=== PATIENT | male | born 1965 | race Caucasian/White ===

== ENCOUNTER 2017-11-26 11:30 | Emergency (ER) | payer OTHER ==
[2017-11-26 11:42] VITALS: BP 154/80; PULSE 91; RESP 18; TEMP 97.9; O2SAT 99
--- NOTE | 2017-11-26 12:37 | C.PDOC ---
History Of Present Illness 52 year old male presents to the ED for evaluation of lower back pain. Patient had an accident at work on 10/25 and sustained an injury to his lower back. He was evaluated and cleared by his PMD to return to work this week. Patient states he lifted a heavy box (approximately 80lbs) at work 4 days ago and has had pain to his lower back since then. He also notes the pain radiates down his left leg. Patient has been taking 800mg Ibuprofen with minimal relief. He denies urinary/bowel incontinence, saddles anesthesia, extremity numbness/ weakness, and any other injures/trauma to the affected areas. Time Seen by Provider: 11/26/17 11:59 Chief Complaint (Nursing): Back Pain History Per: Patient History/Exam Limitations: no limitations Onset/Duration Of Symptoms: Days (4) Current Symptoms Are (Timing): Still Present Quality Of Discomfort: "Pain" Previous Symptoms: Back Pain, Prior Injury Associated Symptoms: denies: Incontinence, New Weakness, New Numbness Additional History Per: Patient Past Medical History Reviewed: Historical Data, Nursing Documentation, Vital Signs Vital Signs: Last Vital Signs Temp 97.9 F 11/26/17 11:40 Pulse 91 H 11/26/17 11:40 Resp 18 11/26/17 11:40 BP 154/80 H 11/26/17 11:40 Pulse Ox 99 11/26/17 13:56 - Medical History PMH: No Chronic Diseases Surgical History: No Surg Hx Family History: States: Unknown Family Hx - Social History Hx Tobacco Use: No Hx Alcohol Use: No Hx Substance Use: No - Immunization History Hx Tetanus Toxoid Vaccination: No Hx Influenza Vaccination: No Hx Pneumococcal Vaccination: No Review Of Systems Genitourinary: Negative for: Incontinence Musculoskeletal: Positive for: Back Pain, Leg Pain (left) Neurological: Negative for: Weakness, Numbness Physical Exam - Physical Exam Appears: Non-toxic, No Acute Distress Skin: Normal Color, Warm, Dry, No Ecchymosis Head: Atraumatic, Normacephalic Eye(s): bilateral: Normal Inspection Neck: Normal ROM Chest: Symmetrical Cardiovascular: Rhythm Regular Respiratory: Normal Breath Sounds, No Accessory Muscle Use, No Wheezing Back: Normal Inspection (no bulging), No Vertebral Tenderness, Paraspinal Tenderness (lumbar) Extremity: Normal ROM, No Tenderness, No Calf Tenderness, Capillary Refill ( less than 2 seconds ), No Deformity, No Swelling Neurological/Psych: Oriented x3, Normal Speech Gait: Steady ED Course And Treatment O2 Sat by Pulse Oximetry: 99 (on RA) Pulse Ox Interpretation: Normal Reassessment Condition: Improved Medical Decision Making Medical Decision Making: Impression: 52 year old male with lower back pain radiating down left leg Plan: * Toradol IM Progress: On reassessment, patient is resting comfortably, showing no signs of distress and reports an improvement in his symptoms. Patient is ambulatory in the ED and is stable for discharge. He is advised to follow up with his PMD within 2-5 days for further evaluation and/or return to the ED if symptoms persist or worsen. Disposition Counseled Patient/Family Regarding: Diagnosis, Need For Followup, Rx Given - Disposition Referrals: [facility] [place] [Outside] [facility] [Outside] Disposition: HOME/ ROUTINE Disposition Time: 12:36 Condition: STABLE Additional Instructions: Follow up with your primary medical doctor or clinic in 2-5 days for further evaluation. Return to the emergency department at any time if symptoms persist or worsen. 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 - Scribe Statement The provider has reviewed the documentation as recorded by the Scribe (Ayesha Govea) All medical record entries made by the Scribe were at my direction and personally dictated by me. I have reviewed the chart and agree that the record accurately reflects my personal performance of the history, physical exam, medical decision making, and the department course for this patient. I have also personally directed, reviewed, and agree with the discharge instructions and disposition.
== END 2017-11-26 13:05 | disposition home or self-care (01) ==
LOC: C.ER 11:30
DX: S39.012A Strain of muscle, fascia and tendon of lower back, initial encounter (principal); X50.0XXA Overexertion from strenuous movement or load, initial encounter; Y92.89 Other specified places as the place of occurrence of the external cause; Y99.0 Civilian activity done for income or pay
CPT/HCPCS: 96372; 99283; J1885